=== PATIENT | female | born 2000 | race African-American/Black ===

== ENCOUNTER 2024-08-24 17:54 | Emergency (ER) | payer OTHER, SELFPAY ==
[2024-08-24 18:19] VITALS: BP 130/80; PULSE 105; RESP 18; TEMP 37.1; O2SAT 100
[2024-08-24 19:05] LABS: EDCOVIDSCREEN Negative (Negative); EDINFLUASCREEN Negative (Negative); EDINFLUBSCREEN Negative (Negative); EDSTREPNEGPOS1 Negative (Negative)
--- NOTE | 2024-08-24 19:10 | ED.URI ---
HPI - URI/Sore Throat General Chief Complaint: Upper Respiratory Infection Stated Complaint: sore throat / body ache / chest pain Time Seen by Provider: 08/24/24 19:01 Source: patient and RN notes reviewed Mode of arrival: ambulatory Limitations: no limitations History of Present Illness HPI Narrative: Patient presents today complaining of sore throat, body aches, dry cough, and discomfort in the chest with coughing. Denies fever. Symptoms began today. 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 Currently rates her pain 6/10 and took a dose of Zicam and has been using cough drops without much relief. Related Data Home Medications Medication Instructions Recorded Confirmed cetirizine 10 mg tablet (Zyrtec) 10 mg PO DAILY 08/24/24 08/24/24 Allergies Allergy/AdvReac Type Severity Reaction Status Date / Time No Known Allergies Allergy Verified 08/24/24 18:28 Review of Systems Review of Systems: CONSTITUTIONAL: Denies fever, chills, or sweats.+ body aches EYES: Denies visual changes, redness, or discharge. ENT: Denies rhinorrhea, congestion, or otalgia.+ sore throat CARDIOVASCULAR: Denies chest pain, palpitations, or edema. RESPIRATORY: Denies dyspnea.+ cough, chest discomfort GASTROINTESTINAL: Denies abdominal pain, nausea, vomiting, or diarrhea. GENITOURINARY: Denies dysuria or hematuria. SKIN: Denies rash, itching, or wounds. MUSCULOSKELETAL: Denies back pain, joint pain, or myalgia. NEUROLOGIC: Denies headache, numbness, tingling, or weakness. PSYCH: Denies depression or anxiety. PMFSH Comments At time of signature, I have reviewed and agree with nursing past medical, surgical, social and family history unless otherwise noted. Please see nursing chart for further information. There is no relevant family history pertinent to the presenting complaint Exam Narrative: GENERAL: Mildly ill-appearing, well-nourished, and in no acute distress. HEAD: Normocephalic, atraumatic. EYES: EOMI. No redness or drainage. Conjunctivae normal. ENT: Mucous membranes pink and moist. Nares congested with rhinorrhea. TMs normal bilaterally. Throat erythematous without edema or exudate. Uvula midline. NECK: Normal AROM. Supple. No lymphadenopathy. CHEST: No respiratory distress. Clear to auscultation. HEART: Regular rate and rhythm. No murmur appreciated. EXTREMITIES: Normal range of motion. No edema. SKIN: Warm, dry, no rash. Capillary refill normal. Normal skin turgor. NEURO: No focal deficits. Alert and oriented x3. Gait steady. PSYCH: Normal affect. No signs of depression or anxiety. Course Course Level of Care: Express Care Visit Vital Signs Vital signs: Vital Signs Temperature 98.7 F 08/24/24 18:19 Pulse Rate 105 H 08/24/24 18:19 Respiratory Rate 18 08/24/24 18:19 Blood Pressure 130/80 08/24/24 18:19 Pulse Oximetry 100 08/24/24 18:19 Oxygen Delivery Room Air 08/24/24 18:19 Temperature 98.7 F 08/24/24 18:19 Pulse Rate 105 H 08/24/24 18:19 Respiratory Rate 18 08/24/24 18:19 Blood Pressure 130/80 08/24/24 18:19 Pulse Oximetry 100 08/24/24 18:19 Oxygen Delivery Room Air 08/24/24 18:19 Reviewed MDM - URI/Sore Throat MDM Narrative Medical decision making narrative: Testing negative. Strep culture pending. Symptoms likely viral in etiology. Discussed [id number] medication use and duration of illness. No prescription medications indicated at this time. Anticipatory guidance given. Differential Diagnosis Differential diagnosis: Likely upper respiratory infection, viral infection, influenza, pharyngitis and other (Strep throat, COVID) Lab Data Attestation: I reviewed the patient's lab results. Labs: Lab Results 08/24/24 Range/Units 19:03 POC Influenza A Ag Negative (Negative) POC Influenza B Ag Negative (Negative) POC SARS CoV-2 Ag Negative (Negative) POC Grp A Strep Screen Negative (Negative) Critical Care
== END 2024-08-24 19:20 | disposition home or self-care (01) ==
PROVIDERS: Emergency Provider Nurse Practitioner; PCP Family Medicine
DX: B34.9 Viral infection, unspecified (principal); Z20.822 Contact with and (suspected) exposure to COVID-19
CPT/HCPCS: 87081; 87426; 87804; 87880; 99213; G0463

== ENCOUNTER 2025-01-14 13:20 | Emergency (ER) | payer OTHER, SELFPAY ==
--- NOTE | 2025-01-14 13:21 | ED_ITS ---
HPI - Nausea/Vomiting/Diarrhea General Chief complaint: Upper Respiratory Infection Stated complaint: vomiting Time Seen by Provider: 01/14/25 13:21 Source: patient Mode of arrival: ambulatory Limitations: no limitations History of Present Illness HPI Narrative: Jl is a 24-year-old female patient presenting to the clinic today with complaints of headache, nausea, vomiting, sore throat, runny nose, and sinus dr antwan x3 days. She reports no known fever or body aches. 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 She denies any chest pain or shortness of breath. Last menstrual period was last week and denies any chance of . Related Data Home Medications ?Medication ?Instructions ?Recorded ?Confirmed ?Last Taken ?Type cetirizine 10 mg tablet (Zyrtec) 10 mg PO DAILY 08/24/24 08/24/24 Unknown History Allergies Allergy/AdvReac Type Severity Reaction Status Date / Time No Known Allergies Allergy Verified 01/14/25 13:26 Review of Systems Review of Systems: Pertinent positives per HPI. Patient denies any fever, chills, rash,visual changes, dizziness, shortness of breath, chest pain, palpitations, diarrhea, constipation, abdominal pain, or any urinary issues. PMFSH Comments At the time of my signature, I reviewed and agree with the nursing past medical, surgical, social, and family history. There is no relevant family history pertinent to the patient complaint. Exam Narrative: General: Well-developed, well nourished, in no apparent distress Head: Normocephalic, atraumatic Eyes: Pupils equally round and reactive to light bilaterally, EOM intact, sclera and conjunctive clear, no discharge, lids normal Ears: TMs intact and congested, ear canals clear, no drainage, grossly hearing normal. Nose: Nares patent, clear nasal discharge, no inflammation, no sinus tenderness. Mouth: Oropharynx mildly red without lesions or masses, good dentition, MMM. Postnasal drip Neck: Supple, trachea midline, no enlargement of anterior or posterior cervical nodes, no thyroid masses or goiter palpable. Cardio: Regular rate and rhythm, s1 and s2 normal, no murmur appreciated. Resp: Clear to auscultation bilaterally anteriorly and posteriorly, no rhonchi, rales, wheezing or rubs Course Course Emergency Course: Portions of this record may have been created with voice recognition software. Level of Care: Express Care Visit Vital Signs Vital signs: Vital Signs Temperature 36.4 C 01/14/25 13:26 Pulse Rate 98 01/14/25 13:26 Respiratory Rate 18 01/14/25 13:26 Blood Pressure 117/64 01/14/25 13:26 Pulse Oximetry 100 01/14/25 13:26 Oxygen Delivery Room Air 01/14/25 13:26 Temperature 36.4 C 01/14/25 13:26 Pulse Rate 98 01/14/25 13:26 Respiratory Rate 18 01/14/25 13:26 Blood Pressure 117/64 01/14/25 13:26 Pulse Oximetry 100 01/14/25 13:26 Oxygen Delivery Room Air 01/14/25 13:26 Vital signs reviewed MDM - Nausea/Vomiting/Diarrhea MDM Narrative Medical decision making narrative: At the time of visit patient is resting comfortably on the exam table. Patient appears to be nontoxic. Labs: Strep and influenza testing was performed and all testing was negative in the clinic today. Plan: I suspect patient has URI/viral syndrome/pharyngitis. Prescription for Zofran was sent to the pharmacy. Supportive measures were discussed with the patient and they voiced understanding discharge instructions and agrees to treatment plan. Return precautions reviewed Differential Diagnosis Differential diagnosis: Likely traveler's diarrhea, food poisoning, gastroenteritis, clostridium difficile infection, drug-induced nausea and vomiting, dehydration and other (Influenza, strep pharyngitis) Lab Data Labs: Lab Results 01/14/25 Range/Units 13:45 POC Grp A Strep Screen Negative (Negative) Discharge Plan Discharge Clinical Impression: Viral infection Upper respiratory infection Qualifiers: URI type: unspecified URI Qualified Code(s): J06.9 - Acute upper respiratory infection, unspecified Pharyngitis Qualifiers: Pharyngitis/tonsillitis etiology: unspecified etiology Qualified Code(s): J02.9 - Acute pharyngitis, unspecified Patient Disposition: Home, Self-Care Condition: Stable Instructions: Antibiotic Form, Pharyngitis (ED), Viral Syndrome (ED), Cold Symptoms (ED) Additional Instructions: Influenza and strep testing was negative in the clinic today. We will send strep for culture if this comes back positive we will contact you and place you on antibiotics at that time. Take prescription medications only as prescribed-Zofran for nausea Increase fluids and stay well hydrated Tylenol/motrin for pain/fever Flonase and OTC antihistamines as directed Vicks vapor rub to open sinuses Sinus rinses for congestion Cepacol spray, cough drops, throat lozenges, warm tea with honey/lemon, gargle salt water to soothe throat BRAT diet for diarrhea Clear liquids x 24 hours then advance as tolerated for nausea/vomiting Go to the ED if you develop a worsening in your condition- high fever not controlled by Tylenol or Motrin, dehydration, weakness, lethargy, shortness of breath, or chest pain. Follow up with your PCP in 3-5 days if symptoms persist. Patient Language: Peruvian Prescriptions: New ondansetron 4 mg tablet,disintegrating 4 mg PO Q6H PRN (Reason: nausea and vomiting) 3 Days Qty: 12 0RF No Action cetirizine [Zyrtec] 10 mg Tablet 10 mg PO DAILY Follow-up/Referrals: Art,Russ Olson MD [Primary Care Provider] - Stand Alone Forms: Work/School Release IP Time of Disposition: 13:45 Quality NIHSS Nursing Documentation ED NIHSS nursing documentation: reviewed/agree
--- OUTSIDE RECORDS SUMMARY | 2025-01-14 13:25 | XMS_ITS | Clinical Summary ---
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 Immunizations Immunization Administration Dates Next Due (ADACEL/BOOSTRIX)(10 YR UP) TDAP VACCINE, 0.5ML, IM 07/22/2022 (INFANRIX)(6 WKS-6 YRS) DIPT HERIA, TETANUS TOXOIDS, AND ACCELLULAR PERTUSSIS VACCINE (DTAP), 0.5 ML IM 01/13/2004,02/03/2001,07/11/2000,04/03,02/29/2000 (IPOL)(6 WKS AND UP) POLIOVI LAURA VACCINE, INACTIVATED (IPV), 3 DOSE, SUBCUT OR IM 01/13/2004,07/11/2000,04/03/2000,02/28 (M-M-R II/PRIORIX)(12 MO UP) MEASLES, MUMPS AND RUBELLA VIRUS VACCINE, 0.5 ML IM/SUBCUT 01/13/2004,02/03/2001 (VARIVAX)(12 MOS UP)VARICELL A VIRUS VACCINE (PF) 0.5 ML, SUB CUT 12/19/2000 HIB, Unspecified Formulation 02/03/2001, 07/11/2000,04/03/2000,02/28 Hepatitis A Vaccine 05/17/2005,01/13/2004 Hepatitis A Vaccine Ped Adol IM 2 Dose VFC 07/18/2012 Hepatitis B Vaccine 02/03/2001,07/11/2000,1999 IPV/OPV 02/03/2001 Meningococcal A Conjugate Va ccine IM VFC 07/18/2012 Tdap Vaccine > 7 Yo IM VFC 07/18/2012 Varicella Vaccine Live Sq VFC 07/18/2012 Family History Medical History Relation Name Comments Cancer Maternal Grandmother Thyroid Disease Maternal Grandmother Asthma Mother Stroke Mother Relation Name Status Comments Brother 1 Alive Brother 2 Alive Father Alive Maternal Grandmother Mother Alive Sister Alive Social History Tobacco Use Types Packs/Day Years Used Date Smoking Tobacco: Never Smokeless Tobacco: Never Alcohol Use Standard Drinks/Week Comments No 0 (1 standard drink = 0.6 oz pur e alcohol) Comments No Sex and Gender Information Value Date Recorded Sex Assigned at Not on file Legal 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 Gender Identity Not on file Sexual Orientation Not on file Occupation Industry Job Start Date Job End Date Not on file Not on file Not on file Not on file Last Filed Vital Signs Vital Sign Reading Time Taken Comments Blood Pressure 119/71 07/22/2022 5:26 PM CDT Pulse 78 07/22/2022 5:26 PM CDT Temperature 36.7 C (98.1 F) 07/22/2022 5:26 PM CDT Respiratory Rate 10 07/22/2022 5:26 PM CDT Oxygen Saturation 100% 07/22/2022 5:26 PM CDT Inhaled Oxygen Concentration - - Weight 52.2 kg (115 lb) 01/02/2022 9:23 PM PASTING INSPECTOR Height 157.5 cm (5' 2 ) 01/02/2022 9:23 PM PASTING INSPECTOR Body Mass Index 21.03 01/02/2022 9:23 PM PASTING INSPECTOR Plan of Treatment Health Maintenance Due Date Last Done Comments HPV VACCINES (1 - 3-dose series) 2014 CERVICAL CANCER SCREENING 2020 INFLUENZA VACCINE (#1) 2024 DTAP/TDAP/TD VACCINES (8 - Td or Tdap) 07/22/2032 07/22/2022, 07/18/2012, 01/13/2004, Additional history exists HEPATITIS B VACCINES Completed 02/03/2001, 02/03/2001, 07/11/2000, Additional history exists PNEUMOCOCCAL VACCINE 0-64 YEARS Aged Out No longer eligible based on patient's age to complete this topic Insurance [employer] [facility] Address: [facility] [id number] [place] [address]
--- OUTSIDE RECORDS SUMMARY | 2025-01-14 13:25 | XMS_ITS | Data Portability ---
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 Richards came in today with a complaint of burning with urinating for one day. Not available 10/15/2023 10:32:37 11/15/2023 11/15/2023 Ms. Richards presented in office today with complaint of cough, sore throat, fatigue, body aches, headache, and chills times [address] Stevens, who concurs with assessment and plan. [email or web address] Not available 11/20/2023 07:10:03 02/13/2024 02/13/2024 Pertinent paperwork was addressed. Not available 02/17/2024 14:20:19 11/17/2024 11/17/2024 Ms. Richards presents with a two-day history of cough, nasal congestion, headache, and facial pain. The patient also reports a sore throat persisting for the same duration. Symptoms worsened last night, with the onset of right ear pain starting at approximately 1:00 AM. Not available 11/26/2024 11:48:49 Plan of Treatment Reminders Order Date Submit Date Provider Last Modified By Organization Details Last Modified Time Details Appointments None recorded. Lab rapid strep group A, throat 2023 024 ELSY In-Office Order, Internal Use Only DO Not Attach Compendium DO Not Attach Compendium, Do Not Delete/merge, [id number] 16:19:00 rapid SARS CoV 2 Ag, QL IA, respirato ry specimen 2023 024 ELSY In-Office Order, Internal Use Only DO Not Attach Compendium DO Not Attach Compendium, Do Not Delete/merge, [id number] 4 16:36:11 rapid flu (A+B) 2023 024 ELSY In-Office Order, Internal Use Only DO Not Attach Compendium DO Not Attach Compendium, Do Not Delete/merge, [id number] 4 16:36:38 CBC w/ auto diff 2023 024 ELSY [facility], [address] [facility], [facility] [address], [place], [address], 4 06:15:34 rapid flu (A+B) 2022 023 In-Office Order, Internal Use Only DO Not Attach Compendium DO Not Attach Compendium, Do Not Delete/merge, [id number] 3 14:29:55 rapid SARS CoV 2 Ag, QL IA, respirato ry specimen 2022 023 In-Office Order, Internal Use Only DO Not Attach Compendium DO Not Attach Compendium, Do Not Delete/merge, [id number] 3 14:29:59 rapid strep group A, throat 2022 023 In-Office Order, Internal Use Only DO Not Attach Compendium DO Not Attach Compendium, Do Not Delete/merge, [id number] 3 14:30:00 culture, urine 2022 023 ELSY [facility], [address] [facility], [facility], [place], [address], 3 16:13:15 urinalysi s, dipstick 2022 023 ELSY In-Office Order, Internal Use Only DO Not Attach Compendium DO Not Attach Compendium, Do Not Delete/merge, [id number] 3 08:59:17 vaginal pathogens panel, CORBIN+probe , vaginal fluid 2021 022 ADIN [facility], [address] [facility], [facility], [place], [address], 2 16:09:58 urinalysi s, dipstick 2021 022 [email or web address] In-Office Order, Internal Use Only DO Not Attach Compendium DO Not Attach Compendium, Do Not Delete/merge, [id number] 2 11:20:09 Referral None recorded. Procedures None recorded. Surgeries None recorded. Imaging None recorded. Medication Orders Zithromax Z-Chandrakant 250 mg tablet 2023 [facility]acy #[id number], [address], [place], [address], 4 16:02:19 Medrol (Chandrakant) 4 mg tablets in a dose pack 2023 024 [id number], [address], [place], [address], 4 11:51:43 neomycin- polymyxin -hydrocor t 3.5 mg-10,000 unit/mL-1 % ear drops,bethany p 2023 [id number], [address], [place], [address], 4 11:51:44 fluticaso ne propionat e 50 mcg/actua tion nasal spray,bethany pension 2023 024 [facility]/Pharmacy #2713, [address], [place], [address], 18:23:38 nitrofura ntoin monohydra te/macroc rystals 100 mg capsule 2022 023 erobbinsma [facility]armacy #[id number], [address], [facility] [place], [address], 4 11:17:00 Pyridium 100 mg tablet 2022 023 erobbinsma [facility] #[id number], [address], [facility] [place], [address], 11:17:04 Patient TargetsNo targets recorded. Patient Instructions Encounter Date Encounter Id Patient Instructions Last Modified By Organization Details Last Modified Time 10/15/2023 [id number] Urinary Tract Infection (UTI) in Women: Care Instructions Not available 10/15/2023 09:16:18 - Always present to ER or Urgent Care with any progression of/alarming symptoms, significant changes in symptoms or any concerning or urgent matters Not available 10/15/2023 08:58:26 11/15/2023 [id number] coronavirus (covid-19): care instructions Not available 11/17/2023 14:41:28 - Always present to ER or Urgent Care with any progression of/alarming symptoms, significant changes in symptoms or any concerning or urgent matters Not available 11/15/2023 13:08:35 11/17/2024 [id number] - Always present to ER or Urgent Care with any progression of/alarming symptoms, significant changes in symptoms or any concerning or urgent matters Not available 11/20/2024 18:24:15 Reason for Referral None Reported. Results Created Date Observation Date Name Description Value Unit Range Abnormal Flag Note LastModifiedBy Organization Detail LastModifiedTime 11/15/2011/16/2022 NUSWA B VAGIN ITIS PLUS (VG+) atopobium vaginae Low - 0 score Not Available [facility] ([facility]) [address] [facility], [place], [address], 11/17/2022 16:09:58 11/15/20 22 11/16/2022 NUSWA B VAGIN ITIS PLUS (VG+) bvab 2 Low - 0 score Not Available [facility] ([facility]) [address] [place], [address], 11/17/2022 16:09:58 11/15/20 22 11/16/2022 NUSWA B VAGIN ITIS PLUS (VG+) megasphaera 1 Low - 0 score Calcu late total score by jose francisco shipley the 3 indiv idual bacte rial vagin osis (BV) marke r score s toget her. Total score is inter prete d as follo ws: Total score 0-1: Indic ates the absen ce of BV. Total score 2: Indet ermin ate for BV. Addit ional clini yusuf data shoul d be evalu ated to estab chacha a diagn osis. Total score 3-6: Indic ates the prese nce of BV. This test was devel oped and its perfo rmanc e jillian cteri stics deter mined by [facility]. It has not been clear ed or appro dorita by the Food and Drug Admin istra tion. Not Available [facility] ([facility]) [address] [facility], [place], [address], 11/17/2022 16:09:58 11/15/20 22 11/16/2022 NUA B VAGIN ITIS PLUS (VG+) kip albicans, CORBIN Negati ve negati ve Not Available [facility] ([facility]) [address] [place], [address], 11/17/2022 16:09:58 11/15/20 22 11/16/2022 NUA B VAGIN ITIS PLUS (VG+) kip glabrata, CORBIN Negati ve negati ve Not Available [facility] ([facility]) [address] [place], [address], 11/17/2022 16:09:58 11/15/20 22 11/17/2022 NUSWA B VAGIN ITIS PLUS (VG+) trich vag by CORBIN Negati ve negati ve Not Available [facility] ([facility]) [address] [facility], [place], [address], 11/17/2022 16:09:58 11/15/20 22 11/17/2022 NUSWA B VAGIN ITIS PLUS (VG+) chlamydia trachomatis, CORBIN Negati ve negati ve Not Available [facility] ([facility]) [address] [facility], [place], [address], 11/17/2022 16:09:58 11/15/20 22 11/17/2022 NUA B VAGIN ITIS PLUS (VG+) neisseria gonorrhoeae, CORBIN Negati ve negati ve Not Available [facility] ([facility]) [address] [facility], [place], [address], 11/17/2022 16:09:58 11/15/20 22 11/15/2022 urina lysis , dipst ick Leukocytes Negati ve Not Available In-Office Order Internal Use Only DO Not Attach Compendium DO Not Attach Compendium, Do Not Delete/merge, [id number] 11/15/2022 11:01:56 11/15/20 22 11/15/2022 urina lysis , dipst ick Nitrite negati ve Not Available In-Office Order Internal Use Only DO Not Attach Compendium DO Not Attach Compendium, Do Not Delete/merge, [id number] 11/15/2022 11:01:56 11/15/20 22 11/15/2022 urina lysis , dipst ick Urobilinogen .2 Not Available In-Of fice Order Internal Use Only DO Not Attach Compendium DO Not Attach Compendium, Do Not Delete/merge, [id number] 11/15/2022 11:01:56 11/15/20 22 11/15/2022 urina lysis , dipst ick Protein Negati ve Not Available In-Office Order Internal Use Only DO Not Attach Compendium DO Not Attach Compendium, Do Not Delete/merge, [id number] 11/15/2022 11:01:56 11/15/20 22 11/15/2022 urina lysis , dipst ick pH 7.0 Not Available In-Office Order Internal Use Only DO Not Attach Compendium DO Not Attach Compendium, Do Not Delete/merge, [id number] 11/15/2022 11:01:56 11/15/20 22 11/15/2022 urina lysis , dipst ick Blood Negati ve Not Available In-Office Order Internal Use Only DO Not Attach Compendium DO Not Attach Compendium, Do Not Delete/merge, [id number] 11/15/2022 11:01:56 11/15/20 22 11/15/2022 urina lysis , dipst ick Specific [place] 1.020 Not Available In-Off ice Order Internal Use Only DO Not Attach Compendium DO Not Attach Compendium, Do Not Delete/merge, [id number] 11/15/2022 11:01:56 11/15/20 22 11/15/2022 urina lysis , dipst ick Ketone Negati ve Not Available In-Office Order Internal Use Only DO Not Attach Compendium DO Not Attach Compendium, Do Not Delete/merge, [id number] 11/15/2022 11:01:56 11/15/20 22 11/15/2022 urina lysis , dipst ick Bilirubin Negati ve Not Available In-Office Order Internal Use Only DO Not Attach Compendium DO Not Attach Compendium, Do Not Delete/merge, [id number] 11/15/2022 11:01:56 11/15/20 22 11/15/2022 urina lysis , dipst ick Glucose Negati ve Not Available In-Office Order Internal Use Only DO Not Attach Compendium DO Not Attach Compendium, Do Not Delete/merge, [id number] 11/15/2022 11:01:56 11/15/20 22 11/15/2022 urina lysis , dipst ick Appearance Clear Not Available In-Offi ce Order Internal Use Only DO Not Attach Compendium DO Not Attach Compendium, Do Not Delete/merge, [id number] 11/15/2022 11:01:56 11/15/20 22 11/15/2022 urina lysis , dipst ick Color Yellow Not Available In-Office Order Internal Use Only DO Not Attach Compendium DO Not Attach Compendium, Do Not Delete/merge, [id number] 11/15/2022 11:01:56 10/15/2010/18/2023 URINE CULTU RE, ROUTI NE urine culture, routine Final report abnormal Not Available [facility] ([facility]) [address] [facility], [place], [address], 10/18/2023 16:13:15 10/15/2010/18/2023 URINE CULTU RE, ROUTI NE result 1 Escher ichia coli abnormal Great er than 100,0 00 colon y formi ng units per mL Cefaz tarcie <=4 ug/mL Cefaz tracie with an DYLAN <=16 predi cts susce ptibi lity to the oral agent s cefac david, cefdi hilario, cefpo doxim e, cefpr ozil, cefur oxime , cepha lexin , and lorac arbef when used for thera py of uncom plica aster urina ry tract infec tions due to E. coli, Klebs iella pneum oniae , and Prote us mirab ilis. Not Available [facility] ([facility]) [address] [facility], [place], [address], 10/18/2023 16:13:15 10/15/2010/18/2023 URINE CULTU RE, ROUTI NE antimicrobia l susceptibili ty Commen t S = Susce ptibl e; I = Inter media te; R = Resis tant P = Posit barbra; N = Negat barbra MICS are expre ssed in micro grams per mL Antib iotic RSLT# 1 RSLT# 2 RSLT# 3 RSLT# 4 Amoxi cilli n/Cla vulan ic Acid S Ampic illin S Cefep derrick S Ceftr iaxon e S Cefur oxime S Cipro floxa adrian S Ertap enem S Genta micin S Imipe nem S Levof loxac in S Merop enem S Nitro furan toin S Piper acill in/Ta zobac sheth S Tetra cycli ne S Tobra mycin S Trime thopr im/Hernández lfa S Not Available [facility] ([facility]) [address], [place], [address], 10/18/2023 16:13:15 10/15/2010/15/2023 urina lysis , dipst ick Leukocytes Large Not Available In-Offi ce Order Internal Use Only DO Not Attach Compendium DO Not Attach Compendium, Do Not Delete/merge, 10/15/2023 08:57:58 10/15/2010/15/2023 urina lysis , dipst ick Nitrite positi ve Not Available In-Office Order Internal Use Only DO Not Attach Compendium DO Not Attach Compendium, Do Not Delete/merge, 10/15/2023 08:57:58 10/15/2010/15/2023 urina lysis , dipst ick Urobilinogen 1 Not Available In-Of fice Order Internal Use Only DO Not Attach Compendium DO Not Attach Compendium, Do Not Delete/merge, 10/15/2023 08:57:58 10/15/20 23 10/15/2023 urina lysis , dipst ick Protein 300 Not Available In-Office Order Internal Use Only DO Not Attach Compendium DO Not Attach Compendium, Do Not Delete/merge, 10/15/2023 08:57:58 10/15/20 23 10/15/2023 urina lysis , dipst ick pH 5.5 Not Available In-Office Order Internal Use Only DO Not Attach Compendium DO Not Attach Compendium, Do Not Delete/merge, 10/15/2023 08:57:58 10/15/20 23 10/15/2023 urina lysis , dipst ick Blood Large Not Available In-Office Order Internal Use Only DO Not Attach Compendium DO Not Attach Compendium, Do Not Delete/merge, 10/15/2023 08:57:58 10/15/20 23 10/15/2023 urina lysis , dipst ick Specific [place] 1.030 Not Available In-Off ice Order Internal Use Only DO Not Attach Compendium DO Not Attach Compendium, Do Not Delete/merge, [id number] 10/15/2023 08:57:58 10/15/2010/15/2023 urina lysis , dipst ick Ketone Negati ve Not Available In-Office Order Internal Use Only DO Not Attach Compendium DO Not Attach Compendium, Do Not Delete/merge, [id number] 10/15/2023 08:57:58 10/15/20 23 10/15/2023 urina lysis , dipst ick Bilirubin Small Not Available In-Offic e Order Internal Use Only DO Not Attach Compendium DO Not Attach Compendium, Do Not Delete/merge, [id number] 10/15/2023 08:57:58 10/15/20 23 10/15/2023 urina lysis , dipst ick Glucose Negati ve Not Available In-Office Order Internal Use Only DO Not Attach Compendium DO Not Attach Compendium, Do Not Delete/merge, [id number] 10/15/2023 08:57:58 10/15/20 23 10/15/2023 urina lysis , dipst ick Appearance Cloudy Not Available In-Offi ce Order Internal Use Only DO Not Attach Compendium DO Not Attach Compendium, Do Not Delete/merge, [id number] 10/15/2023 08:57:58 10/15/2010/15/2023 urina lysis , dipst ick Color Red Not Available In-Office Order Internal Use Only DO Not Attach Compendium DO Not Attach Compendium, Do Not Delete/merge, [id number] 10/15/2023 08:57:58 11/15/20 23 11/15/2023 rapid strep group A, throa t Strep negati ve Not Available In-Office Order Internal Use Only DO Not Attach Compendium DO Not Attach Compendium, Do Not Delete/merge, [id number] 11/15/2023 13:07:51 11/15/20 23 11/15/2023 rapid flu (A+B) Flu A negati ve Not Available In-Office Order Internal Use Only DO Not Attach Compendium DO Not Attach Compendium, Do Not Delete/merge, [id number] 11/15/2023 13:07:48 11/15/20 23 11/15/2023 rapid flu (A+B) Flu B negati ve Not Available In-Office Order Internal Use Only DO Not Attach Compendium DO Not Attach Compendium, Do Not Delete/merge, [id number] 11/15/2023 13:07:48 11/15/20 23 11/15/2023 rapid SARS CoV 2 Ag, QL IA, respi rator y speci men rapid SARS CoV 2 Ag, QL IA, respiratory specimen positi ve Not Available In-Office Order Internal Use Only DO Not Attach Compendium DO Not Attach Compendium, Do Not Delete/merge, [id number] 11/15/2023 13:07:49 02/13/20 24 02/14/2024 CBC WITH DIFFE RENTI AL/PL ATELE T WBC 4.2 x10e3 /uL 3.4-10 .8 Not Available [facility] ([facility]) [address] [facility], [place], [address], 02/14/2024 06:15:34 02/13/20 24 02/14/2024 CBC WITH DIFFE RENTI AL/PL ATELE T RBC 4.22 x10e6 /uL 3.77-5 .28 Not Available [facility] ([facility]) [address] [place], [address], 02/14/2024 06:15:34 02/13/20 24 02/14/2024 CBC WITH DIFFE RENTI AL/PL ATELE T hemoglobin 12.1 g/dL 11.1-1 5.9 Not Available [facility] ([facility]) [address] [facility], [place], [address], 02/14/2024 06:15:34 02/13/20 24 02/14/2024 CBC WITH DIFFE RENTI AL/PL ATELE T hematocrit 35.9 % 34.0-4 6.6 Not Available [facility] ([facility]) [address] [place], [address], 02/14/2024 06:15:34 02/13/20 24 02/14/2024 CBC WITH DIFFE RENTI AL/PL ATELE T MCV 85 fL 79-97 Not Available [facility] ([facility]) [address] [facility], [place], [address], 02/14/2024 06:15:34 02/13/20 24 02/14/2024 CBC WITH DIFFE RENTI AL/PL ATELE T MCH 28.7 pg 26.6-3 3.0 Not Available [facility] ([facility]) [address] [facility], [place], [address], 02/14/2024 06:15:34 02/13/20 24 02/14/2024 CBC WITH DIFFE RENTI AL/PL ATELE T MCHC 33.7 g/dL 31.5-3 5.7 Not Available [facility] ([facility]) [address] [facility], [place], [address], 02/14/2024 06:15:34 02/13/20 24 02/14/2024 CBC WITH DIFFE RENTI AL/PL ATELE T RDW 12.8 % 11.7-1 5.4 Not Available [facility] ([facility]) [address] [facility], [place], [address], 02/14/2024 06:15:34 02/13/20 24 02/14/2024 CBC WITH DIFFE RENTI AL/PL ATELE T platelets 256 x10e3 /uL 150-45 0 Not Available [facility] ([facility]) [address] [facility], [place], [address], 02/14/2024 06:15:34 02/13/20 24 02/14/2024 CBC WITH DIFFE RENTI AL/PL ATELE T neutrophils 35 % notest ab. Not Available [facility] ([facility]) [address] [facility], [place], [address], 02/14/2024 06:15:34 02/13/20 24 02/14/2024 CBC WITH DIFFE RENTI AL/PL ATELE T lymphs 47 % notest ab. Not Available [facility] ([facility]) [address] [facility], [place], [address], 02/14/2024 06:15:34 02/13/20 24 02/14/2024 CBC WITH DIFFE RENTI AL/PL ATELE T monocytes 14 % notest ab. Not Available [facility] ([facility]) [address] [facility], [place], [address], 02/14/2024 06:15:34 02/13/20 24 02/14/2024 CBC WITH DIFFE RENTI AL/PL ATELE T eos 3 % notest ab. Not Available [facility] ([facility]) [address] [facility], [place], [address], 02/14/2024 06:15:34 02/13/20 24 02/14/2024 CBC WITH DIFFE RENTI AL/PL ATELE T basos 1 % notest ab. Not Available [facility] ([facility]) [address] [facility], [place], [address], 02/14/2024 06:15:34 02/13/20 24 02/14/2024 CBC WITH DIFFE RENTI AL/PL ATELE T neutrophils (absolute) 1.5 x10e3 /uL 1.4-7. 0 Not Available [facility] ([facility]) [address] [facility], [place], [address], 02/14/2024 06:15:34 02/13/20 24 02/14/2024 CBC WITH DIFFE RENTI AL/PL ATELE T lymphs (absolute) 2.0 x10e3 /uL 0.7-3. 1 Not Available [facility] ([facility]) [address] [facility], [place], [address], 02/14/2024 06:15:34 02/13/20 24 02/14/2024 CBC WITH DIFFE RENTI AL/PL ATELE T monocytes(ab solute) 0.6 x10e3 /uL 0.1-0. 9 Not Available [facility] ([facility]) [address] [facility], [place], [address], 02/14/2024 06:15:34 02/13/20 24 02/14/2024 CBC WITH DIFFE RENTI AL/PL ATELE T eos (absolute) 0.1 x10e3 /uL 0.0-0. 4 Not Available [facility] ([facility]) [address] [facility], [place], [address], 02/14/2024 06:15:34 02/13/20 24 02/14/2024 CBC WITH DIFFE RENTI AL/PL ATELE T baso (absolute) 0.1 x10e3 /uL 0.0-0. 2 Not Available [facility] ([facility]) [address] [facility], [place], [address], 02/14/2024 06:15:34 02/13/20 24 02/14/2024 CBC WITH DIFFE RENTI AL/PL ATELE T immature granulocytes 0 % notest ab. Not Available [facility] ([facility]) [address] [facility], [place], [address], 02/14/2024 06:15:34 02/13/20 24 02/14/2024 CBC WITH DIFFE RENTI AL/PL ATELE T immature grans (abs) 0.0 x10e3 /uL 0.0-0. 1 Not Available [facility] ([facility]) [address] [facility], [place], [address], 02/14/2024 06:15:34 11/18/20 24 11/18/2024 rapid SARS CoV 2 Ag, QL IA, respi rator y speci men rapid SARS CoV 2 Ag, QL IA, respiratory specimen negati ve Not Available In-Office Order Internal Use Only DO Not Attach Compendium DO Not Attach Compendium, Do Not Delete/merge, [id number] 11/17/2024 15:57:22 11/18/20 24 11/18/2024 rapid flu (A+B) Flu A negati ve Not Available In-Office Order Internal Use Only DO Not Attach Compendium DO Not Attach Compendium, Do Not Delete/merge, [id number] 11/17/2024 15:57:30 11/18/20 24 11/18/2024 rapid flu (A+B) Flu B negati ve Not Available In-Office Order Internal Use Only DO Not Attach Compendium DO Not Attach Compendium, Do Not Delete/merge, [id number] 11/17/2024 15:57:30 11/18/20 24 11/18/2024 rapid strep group A, throa t Strep negati ve Not Available In-Office Order Internal Use Only DO Not Attach Compendium DO Not Attach Compendium, Do Not Delete/merge, [id number] 11/17/2024 15:57:19 Result Notes None recorded. Problems Name Problem SNOMED Code Status Onset Date Resolution Date Notes Provider Name and Address Organization Details Recorded Time Pneumonia 519294620 Completed 201808/24/2019 SUNITA ESCAMILLA NP Attn: Ami shipley,[address] [place], [address], [place] [facility] 9 15:38:32 Seasonal allergy 829106771 Active 2018 SUNITA ESCAMILLA NP Attn: Ami shipley,[address] [place], [address], [place] [facility] 15:38:36 Upper respiratory infection 44137183 Active 2018 SUNITA ESCAMILLA NP Attn: Ami shipley,[address] [place], [address], [place] [facility] 15:38:38 Deficiency of vitamin D2 148670051 Active 2018 SUNITA ESCAMILLA NP Attn: Ami shipley,[address] [place], [address], [place] [facility] 3 08:55:51 Acute urinary tract infection 039971900 Active 2022 SUNITA ESCAMILLA NP Attn: Ami shipley,[address] [place], [address], [place] [facility] 3 11:38:40 Problem Notes None recorded. Medical Equipment None Reported. Allergies No known drug allergies Medications Name Sig Start Date Stop Date Status Note LastModified by Organization Details LastModified Time amoxicillin 500 mg capsule TAKE 1 CAPSULE BY MOUTH FOUR TIMES A DAY UNTIL GONE 05/28 completed Not Available Not Available Not Available azithromyci n 250 mg tablet TAKE 2 TABLETS (500 MG) BY ORAL ROUTE ONCE DAILY FOR 1 DAY THEN 1 TABLET (250 MG) BY ORAL ROUTE ONCE DAILY FOR 4 DAYS active Not Available Not Available No t Available hydrocodone 5 mg-acetamin ophen 325 mg tablet TAKE 1 TABLET BY MOUTH EVERY 6 HOURS NEEDED FOR PAIN 05/28 completed Not Available Not Available Not Available Claritin 10 mg tablet Take 1 tablet every day by oral route for 30 days. 08/23 completed Not Available Not Available Not Available ciprofloxac in 500 mg tablet TAKE 1 TABLET BY MOUTH EVERY 12 HOURS FOR 5 DAYS 02/12 completed Not Available Not Available Not Available Tamiflu 75 mg capsule Take 1 capsule twice a day by oral route for 5 days. 08/23 completed Not Available Not Available Not Available phenazopyri dine 100 mg tablet TAKE 1 TABLET BY MOUTH THREE TIMES A DAY FOR 2 DAYS 02/12 completed Not Available Not Available Not Available fluticasone 100 mcg-salmete rol 50 mcg/dose blistr powdr for inhalation Inhale 1 puff twice a day by inhalatio n route. 03/13 completed does not take Not Available Not Available Not Available methylpredn isolone 4 mg tablets in a dose pack Take 1 dose pk by oral route. active Not Available Not Available No t Available Vitamin D2 1,250 mcg (50,000 unit) capsule Take 1 capsule every week by oral route. 08/23 completed Not Available Not Available Not Available fluticasone propionate 50 mcg/actuati on nasal spray,suspe nsion 1 spray each nostril every day active Not Available Not Available No t Available neomycin-po lymyxin-hyd rocort 3.5 mg-10,000 unit/mL-1 % ear drops,susp INSTILL 4 DROPS INTO AFFECTED EAR(S) BY OTIC ROUTE 3 TIMES PER DAY active Not Available Not Available No t Available nitrofurant oin monohydrate /macrocryst als 100 mg capsule TAKE 1 CAPSULE BY MOUTH EVERY 12 HOURS FOR 7 DAYS 02/12 completed Not Available Not Available Not Available Vitals Date Recorded Body height Body mass index (BMI) Body weight Systolic blood pressure Diastolic blood pressure Provider Name and Address Organization Details Last Updated DateTime 11/15/2022 158.75 cm 18.2 kg/m2 29631.12 g 98 mm[Hg] 64 mm[Hg] CHELO Brewster [facility] 2 10:48:11 Date Recorded Body height Body mass index (BMI) Body weight Oxygen saturation Oxygen saturation in Arterial blood by Pulse oximetry Heart rate Respiratory rate Body temperature Systolic blood pressure Diastolic blood pressure Provider Name and Address Organization Details Last Updated DateTime 3 158.75 cm 18 kg/m2 42284.2 9 g 95 % 95 % 95 /min 16 /min 97.1 [degF] 112 mm[Hg] 78 mm[Hg] Roxane Huang LPN [facility] 3 08:53:17 Date Recorded Body height Body mass index (BMI) Body weight Oxygen saturation Oxygen saturation in Arterial blood by Pulse oximetry Heart rate Respiratory rate Body temperature Systolic blood pressure Diastolic blood pressure Provider Name and Address Organization Details Last Updated DateTime 3 158.75 cm 17.7 kg/m2 78439.4 5 g 96 % 96 % 108 /min 17 /min 97.1 [degF] 106 mm[Hg] 70 mm[Hg] Roxane Huang LPN [facility] 3 13:01:04 Date Recorded Body height Body mass index (BMI) Body weight Oxygen saturation Oxygen saturation in Arterial blood by Pulse oximetry Heart rate Respiratory rate Body temperature Systolic blood pressure Diastolic blood pressure Provider Name and Address Organization Details Last Updated DateTime 4 158.75 cm 18.2 kg/m2 01229.9 3 g 99 % 99 % 89 /min 16 /min 97.5 [degF] 99 mm[Hg] 52 mm[Hg] Lucero Chung [place] [facility] 4 11:16:08 Date Recorded Body height Body mass index (BMI) Body weight Oxygen saturation Oxygen saturation in Arterial blood by Pulse oximetry Heart rate Respiratory rate Body temperature Systolic blood pressure Diastolic blood pressure Provider Name and Address Organization Details Last Updated DateTime 4 158.75 cm 18.4 kg/m2 48042.4 2 g 98 % 98 % 108 /min 17 /min 98.9 [degF] 102 mm[Hg] 68 mm[Hg] Roxane Huang LPN [place] - [facility] 4 15:47:24 Social History Question Answer Notes LastModified by Organizat ion Details LastModified Time Tobacco Smoking Status Never Smoker SUNITA ESCAMILLA NP Attn: Accounting,[address] [facility], [place], [address], [place] [facility] 08/23/2020 20:11:42 Do You Have An Advance Directive? No Information not available 02/08/2021 What Is Your Level Of Alcohol Consumption? Occasional Information not available 02/08/2021 How Many Years Have You Consumed Alcohol? 0 Information not available 02/08/2021 Are You Blind Or Do You Have Difficulty Seeing? No Information not available 02/08/2021 What Is Your Level Of Caffeine Consumption? Moderate 1 To 2 Cups Of Coffee A Day. Dr. Rodrigez 1 A Day. Sometimes A Tea Information not available 02/13/2024 In The 14 Days Before Symptom Onset, Have You Had Close Contact With A Laboratory-confi rmed COVID-19 While That Case Was Ill? No Information not available 02/08/2021 In The 14 Days Before Symptom Onset, Have You Had Close Contact With A Person Who Is Under Investigation For COVID-19 While That Person Was Ill? No Information not available 02/08/2021 Have You Been To An Area Known To Be High Risk For COVID-19? No Information not available 02/08/2021 Are You Currently Employed? Yes Information not available 02/08/2021 Are You Deaf Or Do You Have Serious Difficulty Hearing? No Information not available 02/08/2021 What Type Of Diet Are You Following? REGULAR Information not available 02/08/2021 Do You Or Have You Ever Used E-cigarettes Or Vape? 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 No Information not available 02/08/2021 What Was The Date Of Your Most Recent Tobacco Screening? 11/17/2024 [email or web address] Information not available 11/17/2024 What Is Your Relationship Status? Single Boyfriend Information not available 02/08/2021 Do You Use Your Seat Belt Or Car Seat Routinely? Yes Information not available 02/08/2021 Are You Sexually Active? No Information not available 02/08/2021 Do You Have Smoke And Carbon Monoxide Detectors In Your Home? Yes Information not available 02/08/2021 Are You Passively Exposed To Smoke? No Information not available 02/08/2021 Do You Or Have You Ever Used Smokeless Tobacco? Never Used Smokeless Tobacco Information not available 08/23/2020 Do You Feel Stressed (tense, Restless, Nervous, Or Anxious, Or Unable To Sleep At Night)? [id number] Information not available 02/08/2021 Do You Use Any Illicit Or Recreational Drugs? No Information not available 02/08/2021 Do You Use Sunscreen Routinely? No Information not available 02/08/2021 Has Tobacco Cessation Counseling Been Provided? No Information not available 02/13/2024 On What Date Was Tobacco Cessation Counseling Provided? 02/13/2024 Information not available 02/13/2024 Do You Or Have You Ever Used Any Other Forms Of Tobacco Or Nicotine? No Information not available 02/08/2021 Sex: Female Functional Status Question Answer Note LastModified by Organization D etails LastModified Time Are you able to care for yourself? No Information n ot available 02/08/2021 What is your exercise level? None Information not available 02/08/2021 Mental Status None recorded. Family History Relationship Description Onset Age of this Age Resolved Age Notes LastModified by Organization Details LastModified Time Mother Asthma [email or web address] Not available 0 08/24/2019 15:07:55 Mother Depressive disorder [email or web address] Not available 2018 15:08:14 Brother Attention deficit hyperactivit y disorder [email or web address] Not available 08/24 15:08:03 Maternal Grandmother Malignant tumor of breast 44 50 [email or web address] Not available 11/15 11:01:02 Sister Malignant neoplastic disease Nasal pharan geal cancer [email or web address] Not available 02/13/2024 11:18:36 Notes:no changes reported 09/21, Medical History Condition Response Coronary Artery Disease N Other N Atrial Fibrillation N High Blood Pressure N Depression N COPD N Blood Clots N Anxiety Disorder N Muscle, Joint, or Bone Problems N Acid Reflux (GERD) N Cancer N Stroke N ADHD N High Cholesterol N Liver Disease N Schizophrenia N Headaches N Thyroid Problems N Kidney or Bladder Problems N GI Problems N Eating Disorder N Skin Problems N Anemia N Heart Attack (HI) N Diabetes N Seizures/Epilepsy N Asthma N Allergies N Substance Abuse N Hepatitis N Heart Failure N Osteoporosis N Gynecological History Statement/Question Response Flow Moderate Date of LMP 01/21/2024 Sexually Active? N Menses Monthly Y HPV Vaccine N Duration of Flow (days) 4 Age at Menarche 8 LMP Definite Obstetrics History GPAL:G 0 P 0 0 0 0 Immunizations Vaccine Type Date Status Note Provider Nam e and Address Organization Details Recorded Time MMR 4 completed SUNITA ESCAMILLA NP Attn: Accounting,[address] [place], [address], [place] [facility] 08/23/2020 20:18:09 Tdap 2 completed SUNITA ESCAMILLA NP Attn: Accounting[address] [place], [address], [place] [facility] 08/23/2020 20:16:28 meningococcal B, recombinant 6 completed SUNITA ESCAMILLA NP Attn: Accounting,[address] [place], [address], [place] [facility] 08/23/2020 20:19:23 Influenza, split virus, quadrivalent, preservative 9 completed Not Available [facility] 12/19/2019 02:38:09 COVID-19, mRNA, LNP-S, PF, 100 mcg/0.5mL dose or 50 mcg/0.25mL dose 1 completed Jacqui Turner LPN null, [place] [facility] 02/17/2021 17:05:06 COVID-19, mRNA, LNP-S, PF, 100 mcg/0.5mL dose or 50 mcg/0.25mL dose 1 completed Olivia Everett [place], [place] [facility] 03/20/2021 12:49:46 Tdap 3 completed SUNITA ESCAMILLA NP Attn: Accounting,[address] [place], [address], [place] [facility] 10/15/2023 10:30:22 Influenza, split virus, quadrivalent, preservative 3 completed SUNITA ESCAMILLA NP Attn: Accounting[address] [place], [address], [place] [facility] 10/15/2023 10:30:22 Past Encounters Encounter ID Performer Location Encounter Start Date Encounter Closed Date Diagnosis/Indication Diagnosis SNOMED-CT Code Diagnosis ICD10 Code Diagnosis Note [id number] SUNITA ESCAMILLA NP [facility] [address] [place] [address] 08/24/2019 14:57:33 08/25/2019 10:21:18 Seasonal allergy 433747843 J30.2 - Avoidance/ eliminatio n of offending allergens (e.g., frequent vacuuming, dusting, remove feather pillows from bedroom, change air conditione r filter frequently , removal of house plants, pet control, remove carpet, stuffed animals) - Saline nasal spray or sinus irrigation as needed helps to wash offending particles which are trapped in airways - Antihistam cristobal as needed (e.g., claritin, Zyrtec, Anila and Benadryl) - Nasal Steroids as needed (Flonase & Nasacort) Upper resp iratory infection 66922490 J06.9 - Drink lots of fluids, mainly water. - Run a cool-mist humidifier in your room at night. - For sore throat, gargle warm salt water. - Get extra rest and do not over-exert yourself. - Do not mix multiple medication s with similar ingredient s (for instance Theraflu Non-drowsy and Tylenol Sinus). Doubling up on acetaminop hen and/or decongesta nts such as pseudephed rine can be dangerous. Adult heal th examination 540050508 Z00.00 - New Patient. Condition Stable . Meds and present history reviewed . Refill meds as needed. Obtained old record if available. Education done. Follow up appointmen t scheduled. - Discussed with patient findings, diagnoses, and prognosis. - Discussed plan of care including treatment options, risks, and benefits with patients. Patient expressed understand ing. The following interventi ons were recommende d: heart healthy low-fat, low-sodium diet, ideal body weight, regular exercise, medication s compliance , and medical follow-up as noted. HIV screening 098283266 Z11.4 - CDC recommende d routine health care screening for individual s between the ages of 13 and 64. 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 - Printed care instructio ns provided. - Warning signs explained, to go to ER prn [id number] SUNITA ESCAMILLA NP [place] [address] 08/23/2020 13:22:38 08/24/2020 06:09:31 Injury of shoulder region 224852749 S49.90XA - c/o left shoulder pain radiateing down left arm and into left side of chest. Patient stated she is unable to lift left arm without throbbing pain. Patient stated she also has numbness in left wrist and hand. Concussion with no loss of consciousness 23563145 S06.0X0A - Get plenty of sleep at night- And take rest breaks during the day- Do not drink alcohol or use illegal drugs- Drink plenty of fluids- RTC if you feel less alert, you have new or worsening headaches, trouble concentrat ing, or changes in mood. [id number] DAISY Mcghee [address] [place] [address] 10/07/2020 09:24:11 10/11/2020 11:49:08 Viral screening 053295414 Z11.59 D/w pt the current pandemic of COVID-19 and call for social isolation in order to blunt the curve and minimize risk and spread. Encouraged patient and family to take restrictio ns seriously. They have verbalized understand ing of such. Viral syndrome 455279310 B34.9 [id number] MD James Gama [address] [facility] [place] [address] 02/08/2021 15:33:14 02/13/2021 12:27:32 Seasonal allergic rhinitis 253749395 J30.2 Deficiency of vitamin D2 501580606 E55.9 [id number] JEERMIAH Mar [address] [facility] [place] [address] 02/17/2021 16:09:04 02/20/2021 09:24:04 Administration of SARS-CoV-2 antigen vaccine 387840607 Z23 [id number] JEREMIAH Mar [address] [facility] [place] [address] 03/17/2021 16:37:22 03/20/2021 13:41:49 Administration of SARS-CoV-2 antigen vaccine 920413608 Z23 [id number] MD James Gama [address] [facility] [place] [address] 04/19/2022 16:50:20 04/23/2022 13:25:58 Adult health examination 586702754 Z00.00 [id number] SUNITA ESCAMILLA NP [facility] [address] [place] [address] 05/28/2022 09:40:03 05/29/2022 12:47:37 Abdominal pain 03669091 R10.9 [id number] Addis Silva DENVER [place] [address] [facility] [place] [address] 11/15/2022 10:34:11 11/16/2022 07:16:42 Gynecologic examination 53828461 Z01.419 -Educated on the importance of SBE and awareness. -Discussed the importance of cervical cancer screenings . Pt declined pap today. pt verbalized understand ing of risks.-Edu cated osteoporos is prevention including calcium rich foods, weight bearing exercise.- Discussed the importance of exercise.- Nutrition discussed and the importance of a diet rich in fruits, vegetable, whole grains, and lean proteins.- Counseled regarding prevention of STD's and screening options, condom use and prevention .-Advised avoidance of tobacco, alcohol, and drugs.-Dis cussed sun safety and the importance of sunscreen. Vaginal discharge 191202 006 N89.8 Nuswab completed. Pt educated on vaginal hygiene. Pt treated empiricall y for yeast infection. Pt educated on management and medication . Pt notified to call office if symptoms worsen or if symptoms continue after treatment. Pt educated on prevention of yeast infections . Vaginal irritation 21105 6004 N89.8 UA negative [id number] SUNITA ESCAMILLA NP [address] [address] 10/15/2023 08:40:33 10/15/2023 12:49:17 Urinary symptoms 384003961 R39.9 Acute urin eli tract infection 288951274 N39.0 - Counseled thoroughly about UTI.- Increase fluid intake-corby er, lemonade, cranberry juice, no tub baths, wipe front to back,- Urine for C & S Administra tion of diphtheria, pertussis, and tetanus vaccine 205605308 Z23 - recommende d Tdap vaccinatio n Administra tion of influenza vaccine 16018166 Z23 - recommende d annual influenza vaccinatio n [id number] Russ Stevens MD [facility] [address] [place] [address] 11/15/2023 13:00:15 11/21/2023 14:47:21 Viral upper respiratory tract infection 837019608 J06.9 - Drink lots of fluids, mainly water.- Run a cool-mist humidifier in your room at night. - For sore throat, gargle warm salt water. - Get extra rest and do not over-exert yourself. - Do not mix multiple medication s with similar ingredient s (for instance Theraflu Non-drowsy and Tylenol Sinus). Doubling up on acetaminop hen and/or decongesta nts such as pseudephed rine can be dangerous. COVID-19 437144894 U07.1 - Stay home and separate from others as much as possible. - Wear a high-quali ty mask if you must be around others at home and in public. - Always present to ER or Urgent Care with any progressio n of/alarmin g symptoms, significan t changes in symptoms or any concerning or urgent matters [id number] Russ Stevens MD [place] [address] IM [address] [facility] [address] [address] 02/13/2024 10:57:54 02/18/2024 14:27:13 Adult health examination 482367081 Z00.00 History an d physical examination, pre-employment 472791797 Z02.1 [id number] SUNITA ESCAMILLA NP [facility] [address] [place] [address] 11/17/2024 15:26:17 12/03/2024 13:53:36 Acute upper respiratory infection 05900814 J06.9 Acute righ t otitis media 903294584 H66.91 Acute otitis externa 302 13307 H60.509 Health Concerns Section Related Observation LastModified by Organization Detai ls LastModified Time None Recorded Concern Status LastModified by Organization Details LastModified Time None Recorded Advance Directives Directive N: Payers Encounter Date Sequence Insurance Name Policy Number Policy Rice Covered Member ID Rice Member ID Guarantor Name 11/15/2022 1 [employer] - ALLIED BENEFITS - OPEN ACCESS [id number] Sunita Escamilla [id number] Jl Richards 10/15/2023 1 [employer] - ALLIED BENEFITS - OPEN ACCESS [id number] Sunita Escamilla [id number] Jl Richards 11/15/2023 1 [employer] - ALLIED BENEFITS - OPEN ACCESS [id number] Sunita Escamilla [id number] Jl Richards 02/13/2024 1 [employer] - ALLIED BENEFITS - OPEN ACCESS [id number] Sunita Escamilla [id number] Jl Richards 11/17/2024 1 [employer] - ALLIED BENEFITS - OPEN ACCESS [id number] Sunita Escamilla [id number] Jl Richards Notes Date Note Type Note Provider Name and Address Organization Details Recorded Time 11/15/2022 text/html Annual GYNReport ed bypatient.Menstrual cycle:Normal menses Urinary symptoms:No hematuria; No incontinence Vulva:No genital lesion Vagina:White;Vaginal itching Breast:No breast pain; No breast lump; No nipple discharge Current Contraception:Not sexually active Sexual complaints:No sexual complaints; No pain during intercourse; Normal libido Menopausal Symptoms:No menopausal symptoms; Normal vaginal lubrication Psychological symptoms:No depression; No anxiety; No PMDD Preventive measures:Encourage self breast examination; Encourage regular exercise; Encourage no tobacco use; Followed with Q3 year pap smear and high risk HPV typing Pt is here for annual well women exam. pt reports she has never been sexually active. Pt reports she has possible yeast infection related cottage like vaginal discharge and vaginal itching. Addis Silva [facility], [place] [facility] 11/16/2022 14:10:14 10/15/2023 text/html Urinary FrequencyReported bypatient.Severity:mod erate Duration:every 15 minutes Onset/Timing:sudden Alleviating Factors:nothing gives relief Associated Symptoms:no abdominal pain; no back pain; no chills; no nausea; no vomiting; no fever; no urge incontinence;dribbling ;pain during urination;blood in the urine;hesitancy;feelin gs of urgency Ms. Richards came in today with a complaint of burning with urinating for one day. SUNITA ESCAMILLA NP Attn: Accounting,[address] [place], [address], [place] 10/15/2023 10:37:09 11/15/2023 text/html COVID-19 Symptom s April 2020Reported bypatient.COVID-19 Signs and Symptomschills worsening;muscle pain worsening;headache worsening;sore throat worsening;new loss of taste or smell;fatigue worsening Quality:dry cough Severity:moderate Duration:symptoms lasting 1 days Onset/Timing:date of symptoms onset: (11/14/23) Associated Symptoms:fatigue;runny nose;body aches Prior Labs and ImagingCOVID-19 nasopharyngeal swabUpper Respiratory SymptomsReported bypatient.Location:hea d; chest Severity:moderate Context:sick contact Associated Symptoms:morning cough Ms. Richards presented in office today with complaint of cough, sore throat, fatigue, body aches, headache, and chills times 1 day. Russ Stevens MD Attn: Accounting, [address] [place], [address], [facility] [place] 11/20/2023 07:10:15 02/13/2024 text/html Pt presents with foster childcare paperwork. No acute issues today. Russ Stevens MD Attn: Accounting, [address] [place], [address] [facility] [place] 02/17/2024 14:21:12 11/17/2024 text/html EaracheReported bypatient.Location:rig ht;pain inside ear Quality:aching; sharp Severity:worsening; moderate Duration:started: (11/16/2024) Context:no recent swimming/water in ear; no exposure to second hand smoke; no head trauma; not grinding teeth; no recent air travel;sick contact(niece) Modifying Factors:does not hurt to lie on, or pull on ear;hurts to chew Associated Symptoms:no discharge from the ears; no hearing loss; no ringing in the ears;popping noise in the earsUpper Respiratory SymptomsReported bypatient.Location:hea d; chest; throat Quality:productive cough;colored phlegm;congested Severity:moderate Onset/Timing:gradual Context:no foreign travel; non-smoker;sick contact(niece) 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 Richards presents with a two-day history of cough, nasal congestion, headache, and facial pain. The patient also reports a sore throat persisting for the same duration. Symptoms worsened last night, with the onset of right ear pain starting at approximately 1:00 AM. SUNITA ESCAMILLA NP Attn: Accounting,[address] [place], [address], [place] [facility] 12/03/2024 00:16:39 OBGyn Episode No OBEpisode recorded.
[2025-01-14 13:26] VITALS: BP 117/64; PULSE 98; RESP 18; TEMP 36.4; O2SAT 100
--- OUTSIDE RECORDS SUMMARY | 2025-01-14 13:28 | XMS_ITS | Continuity of Care Document ---
Author Organization [facility] Address [address] [place] [address] Phone Care Team Providers Care Green Building [employer] Designer Name Role Phone Siomara Reed Unavailable Unavailable [...] Healthcare, [address] [place], [id number], [place] tel:[phone] [facility] No Information 4 Bue Siomara. [address], [id number] [address], [place], [place], [id number], [place]. tel:[phone] [facility], [address], [place], [place], [id number], [place] tel:[phone] [facility] No Information 0 8 Modesto Banks. [address], [id number] [address], [place], [place], [id number], [place]. tel:[phone] OFFICE/OUTPA TIENT VISIT, EST [facility], [address], [place], [place], [id number], [place] tel:[phone] [facility] Follow Up ER (chief complaint) Body mass index (BMI) 19 or less, adultHeadach ePain in left shoulderPers on injured in unsp motor-vehicl e acc, traffic, sequela 8 Modesto Banks. [address], [id number] [address], [place], [place], [id number], [place]. tel:[phone] Referring Provider: Darren Salvador, [address] [id number] [place], [address]. tel:[phone] [facility], [address], [place], [place], [id number], [place] tel:[phone] [facility] No Information 8 Modesto Banks. [address], [id number] [address], [place], [place], [id number], [place]. tel:[phone] [facility], [address], [place], [place], [id number], [place] tel:[phone] [facility] No Information 7 Modesto Banks. [address], [id number] [address], [place], [place], [id number], [place]. tel:[phone] [facility], [address], [place], [place], [id number], [place] tel:[phone] [facility] Abnormal finding of blood chemistry, unspecified 201 7 Modesto Banks. [address], [id number] [facility] [place] [id number]. tel:[phone] OFFICE/OUTPA TIENT VISIT, NEW [facility], [address] [facility], [place], [id number], [place] tel:[phone] [facility] new pt (chief complaint) BMI pediatric, 5th percentile to less than 85% for ageWell child check w/o abnormal findingHeada ashli 0201 7 Modesto Banks. [address], [id number] [facility] [place] [id number], [place]. tel:[phone] Family History Family Member Type Diagnosis Age [...] poliovirus vaccine, unspecif ied formulation administered Source: [facility] Agenc y DTap Kids administered Source: Public Agency Haemophilus influenzae type b vaccine, conjugate unspecified formulation administered Source : Public Agency Hep B Adult administered Source: Public Agency Haemophilus influenzae type b vaccine, conjugate unspecified formulation administered Source : Public Agency poliovirus vaccine, inactivated administe red Source: [facility] Agency DTap Kids administered Source: [facility] Agency poliovirus vaccine, inactivated administe red Source: [facility] DTap Kids administered Source: [facility] Agency Haemophilus influenzae type b vaccine, conjugate unspecified formulation administered Source : Public Agency Hep B Adult administered Source: Public Agency Payers Payer name Insurance type Covered alliance party ID Authoriza tion(s) [facility] [id number] Social History Type Description Quantity Date Captured Comments Alcohol Use Details Unknown Caffeine Use Details Unknown Tobacco Use Status No Information Smoking Status No Information Sex Female Sexual Orientation Straight or heterosexual Gender Identity Female Chief Complaint And Reason For Visit No Information Reason For Referral Reason For Referral No Information Plan Of Treatment Date Type Action Status Goal Unhealthy drug use screening . Due on due Goal HPV (1st). Due on due Goal Hepatitis C screening. Due o n due Goal Influenza vaccine. Due on Au due Goal Diabetes screening. Due on A due Goal Depression screening. Due on due Goal Td vaccine. Due on due Goal PAP. Due on due Goal HPV (1st). Due on 8 due Goal Fluoride varnish application . Due on due Goal Tdap due Goal Influenza vaccine. Due on due Goal Depression screening. Due on due Goal Dietary management education , guidance, [...] No Information Instructions Date Instruction Additional Infor иринаion Giving encouragement to exercise Related to Body [...]
[2025-01-14 13:46] LABS: EDSTREPNEGPOS1 Negative (Negative)
[2025-01-14 13:52] LABS: EDINFLUASCREEN Negative (Negative); EDINFLUBSCREEN Negative (Negative)
== END 2025-01-14 13:56 | disposition home or self-care (01) ==
PROVIDERS: Emergency Provider Nurse Practitioner Family; PCP Family Medicine
DX: B34.9 Viral infection, unspecified (principal); J06.9 Acute upper respiratory infection, unspecified; J02.9 Acute pharyngitis, unspecified
CPT/HCPCS: 87081; 87804; 87880; 99213; G0463

== ENCOUNTER 2025-08-04 18:47 | Emergency (ER) | payer OTHER, SELFPAY ==
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
--- OUTSIDE RECORDS SUMMARY | 2025-08-04 18:52 | XMS_ITS | Clinical Summary ---
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 Gender Identity Not on file Sexual Orientation [...] 52.2 kg (115 lb) 01/02/2022 9:23 PM CENTRIFUGAL SCREEN TENDER Height 157.5 cm (5' 2) 01/02/2022 9:23 PM CENTRIFUGAL SCREEN TENDER Body Mass Index 21.03 01/02/2022 9:23 PM CENTRIFUGAL SCREEN TENDER Plan of Treatment Health Maintenance Due Date Last Done Comments HPV VACCINES (1 - 3-dose series) 2014 CERVICAL CANCER SCREENING 2020 HPV/Cotest (21-29) 2020 PAP SMEAR 2020 INFLUENZA VACCINE (#1) 2025 DTAP/TDAP/TD VACCINES (8 - T d or Tdap) 07/22/2032 07/22/2022, 07/18/2012, 01/13/2004, Additional history exists HEPATITIS B VACCINES Completed 02/03/2001, 02/03/2001, 07/11/2000, Additional history exists Insurance [employer] [facility] OPEN ACCESS
[2025-08-04 18:53] VITALS: BP 125/86; PULSE 105; RESP 16; TEMP 37.1; O2SAT 100
[2025-08-04 19:03] LABS: EDCOVIDSCREEN Positive (Negative)
[2025-08-04 19:06] LABS: EDINFLUASCREEN Negative (Negative); EDINFLUBSCREEN Negative (Negative)
--- NOTE | 2025-08-04 19:08 | ED.URI ---
HPI - URI/Sore Throat General Chief Complaint: Upper Respiratory Infection Stated Complaint: body aches/chest tightness/fever/cough Time Seen by Provider: 08/04/25 18:54 Source: patient Mode of arrival: ambulatory Limitations: no limitations History of Present Illness HPI Narrative: 24-year-old female presents with complaint of nasal congestion, cough, fatigue, body aches, low-grade fever for 2 days. No chest pain or shortness of breath. Taking ibuprofen to treat pain and fever. 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 All systems reviewed and negative except as noted above. Related Data Home Medications ?Medication ?Instructions ?Recorded ?Confirmed ?Last Taken ?Type cetirizine 10 mg tablet (Zyrtec) 10 mg PO DAILY 08/24/24 08/24/24 Unknown History Allergies Allergy/AdvReac Type Severity Reaction Status Date / Time No Known Allergies Allergy Verified 08/04/25 18:56 PMFSH Comments At time of signature, agree with nursing past medical, surgical, social and family history. There is no relevant family history pertinent to the presenting complaint. Exam Narrative: GENERAL: This is a well-nourished, well-developed patient, in no apparent distress. HEAD: normocephalic, atraumatic. EYES: PERRL. Sclera clear/white. Vision is grossly intact. EARS: External ears normal, auditory canals clear and without drainage, TMs normal without perforation. Hearing grossly intact. NOSE: External nose normal with Mild congestion, clear nasal drainage THROAT: Mucous membranes moist, posterior pharynx clear. NECK: Neck supple, non-tender without lymphadenopathy, masses or thyromegaly. CARDIOVASCULAR: Regular rate and rhythm without murmurs, gallops, or rubs. RESPIRATORY: Clear to auscultation. Breath sounds equal bilaterally. No wheezes, rales, or rhonchi. SKIN: warm, Dry, intact with no suspicious lesions or rash, good texture and turgor. NEURO: awake, alert, and oriented to person, place and time. There were no obvious focal neurologic abnormalities. EXTREMITIES: No joint tenderness, effusion, or edema noted. Course Course Level of Care: Express Care Visit Vital Signs Vital signs: Vital Signs Temperature 37.1 C 08/04/25 18:53 Pulse Rate 105 H 08/04/25 18:53 Respiratory Rate 16 08/04/25 18:53 Blood Pressure 125/86 08/04/25 18:53 Pulse Oximetry 100 08/04/25 18:53 Oxygen Delivery Room Air 08/04/25 18:53 Temperature 37.1 C 08/04/25 18:53 Pulse Rate 105 H 08/04/25 18:53 Respiratory Rate 16 08/04/25 18:53 Blood Pressure 125/86 08/04/25 18:53 Pulse Oximetry 100 08/04/25 18:53 Oxygen Delivery Room Air 08/04/25 18:53 reviewed MDM - URI/Sore Throat MDM Narrative Medical decision making narrative: positive COVID test. Discussed results with patient. Patient is well-appearing, nontoxic. Lungs clear to auscultation. Recommend ameo-hmd-stdsdht medications to treat viral symptoms. Differential Diagnosis Differential diagnosis: Likely upper respiratory infection, sinusitis, viral infection, influenza and other ( COVID) Lab Data Labs: Lab Results 08/04/25 Range/Units 18:55 POC Influenza A Ag Negative (Negative) POC Influenza B Ag Negative (Negative) POC SARS CoV-2 Ag Positive (Negative) Discharge Plan Discharge Clinical Impression: COVID-19 Patient Disposition: Home Condition: Stable Instructions: COVID-19 (Coronavirus Disease 2019) (ED) Additional Instructions: your COVID test was positive today. COVID is a virus and symptoms may last 10-14 days. Take an nsco-hla-zlbhibe medication to treat her symptoms such as DayQuil NyQuil cold and flu. Take as directed on packaging. Drink at least 64 oz water a day. See your primary care physician if symptoms are not improving. Patient Language: Wolof Prescriptions: No Action cetirizine [Zyrtec] 10 mg Tablet 10 mg PO DAILY Follow-up/Referrals: Art,Russ Olson MD [Primary Care Provider] Stand Alone Forms: Work/School Release IP Time of Disposition: 19:07
== END 2025-08-04 19:11 | disposition home or self-care (01) ==
PROVIDERS: Emergency Provider Nurse Practitioner Family; PCP Family Medicine
DX: U07.1 COVID-19 (principal); Z20.822 Contact with and (suspected) exposure to COVID-19
CPT/HCPCS: 87426; 87804; 99212; G0463